=== PATIENT | male | born 2000 | race African-American/Black ===

== ENCOUNTER 2020-05-11 11:06 | Emergency (ER) | payer OTHER, SELFPAY ==
[2020-05-12 11:01] LABS: SARS-CoV-2 MS2 Positive; SARS-CoV-2 N Gene Negative; SARS-CoV-2 S Gene Negative; SARS-CoV-2 by NAA Not Detected (NotDetected); SARS-CoV-2 orf1ab Negative
== END 2020-05-11 12:02 | disposition home or self-care (01) ==
LOC: EDBD 11:06 → ERS 11:06 → MERGE 11:06 → ERS 12:02
DX: R51.9 Headache, unspecified (principal); R09.81 Nasal congestion; Z20.828 Contact with and (suspected) exposure to other viral communicable diseases
CPT/HCPCS: 87635; 99283; U0003